=== PATIENT | female | born 1955 | race Caucasian/White ===

== ENCOUNTER 2019-05-12 20:12 | Emergency (ER) | payer OTHER, MEDICARE ==
--- NOTE | 2019-05-12 22:35 | RAD ---
XR Chest Pa Lat STANDARD HISTORY: Cough. Findings: Heart size is within normal limits. Lungs are hyperexpanded compatible with COPD change. No focal infiltrative process. IMPRESSION: COPD.
[2019-05-12 22:40] LABS: Hemoglobin 9.9 g/dL (12.0-16.0); Mean Corpuscular HGB CONC 29.1 g/dL (32.0-36.0); Mean Corpuscular Hemoglobin 19.8 pg (27.0-31.0); Platelet Count 383 thou/uL (130-400); Red Blood Cell (RBC) Count 5.01 mill/uL (4.20-5.40); White Blood Cell (WBC) Count 13.4 thou/uL (4.8-10.8)
[2019-05-12 22:53] LABS: #Lymphocytes 1.1 thou/uL (1.20-3.40); #Monocytes 0.9 thou/uL (0.11-0.59); #Neutrophils 11.3 thou/uL (1.40-6.50); %Basophils 0.4 % (0.0-1.0); %Eosinophils 0.1 % (0.0-10.0); %Lymphocytes 8.5 % (21.0-51.0); Anisocytosis SLIGHT = 6-15 cells (100X) (0-5/hpf); Hypochromia SLIGHT = 6-15 cells (100X) (0-5/hpf); MDiff Complete? YES; Microcytosis SLIGHT = 6-15 cells (100X) (0-5/hpf)
[2019-05-12 22:54] LABS: ALT (SGPT) 7 U/L (8-55); AST (SGOT) 15 U/L (5-34); Albumin 4.4 g/dL (3.4-4.8); Alkaline Phosphatase 110 U/L (40-110); Anion Gap 18 mmol/L (10-20); BUN (Urea Nitrogen) 8 mg/dL (9.8-20.1); Bilirubin, Total 0.6 mg/dL (0.2-1.2); Calc. Creatinine Clearance 0 mL/min (70-130); Calcium 9.3 mg/dL (7.8-10.44); Carbon Dioxide 27 mmol/L (23-31); Chloride 97 mmol/L (98-107); Estimated GFR-MDRD 85; Globulin 2.9 g/dL (2.4-3.5); Glucose 114 mg/dL (80-115); Protein, Total 7.3 g/dL (6.0-8.3); Sodium 139 mmol/L (136-145)
[2019-05-13] MEDS ORDERED: Potassium Chloride 20 MEQ TAB ONE (01:13)
--- NOTE | 2019-05-13 08:50 | CT ---
PRELIMINARY REPORT/[facility]/EMERGENCY AFTER HOURS PROCEDURE: EXAM: CTA Chest with Intravenous Contrast CLINICAL HISTORY: PT REPORTS CONGESTION, COUGH, AND LEG SWELLNG FOR 2 DAYS. PT DENIES PAST MEDICAL HX TECHNIQUE: Axial CTA images of the chest with intravenous contrast. MIP reconstructed images were cre ated and reviewed. CONTRAST: With; ISOVUE 370,100mL COMPARISON: None provided. FINDINGS: PULMONARY ARTERIES There is no intraluminal filling defect suspicious for PE. Enlargement of the central pulmonary arteries consistent with pulmonary arterial hypertension. AORTA No thoracic aortic aneurysm or dissection. LUNGS Extensive centrilobular emphysema. PLEURAL SPACES No pleural effusion. No pneumothorax. HEART AND MEDIASTINUM Coronary artery disease. BONES No focal osseous abnormality or acute fracture. CHEST WALL AND UPPER ABDOMEN Images through the upper abdomen are unremarkable. The chest wall is unremarkable. IMPRESSION: 1. There is no intraluminal filling defect suspicious for PE. 2. Enlargement of the central pulmonary arteries consistent with pulmonary arterial hypertension. 3. Extensive centrilobular emphysema. 4. Coronary artery disease. ELECTRONICALLY SIGNED BY: Francisco Patel MD May 13, 2019 2:07:02 AM CDT This report is intended for review by the ordering physician only, in accordance of law. If you recei ve this report in error, please call [facility] at [phone]. FINAL REPORT CT PULMONARY ANGIOGRAM WITH IV CONTRAST AND 3D POSTPROCESSING: I agree with the preliminary report given by [facility].
--- NOTE | 2019-05-14 11:21 | EKG ---
Test Reason : Blood Pressure : / mmHG Vent. Rate : 120 BPM Atrial Rate : 120 BPM P-R Int : 130 ms QRS Dur : 082 ms QT Int : 342 ms P-R-T Axes : 090 067 080 degrees QTc Int : 483 ms Sinus tachycardia with Premature atrial complexes Biatrial enlargement Nonspecific ST abnormality Abnormal ECG Confirmed by STEFFI JONES, MAXINE Miller ([id number]), acquisitions editor MARII DANG ([id number]) on 05/14/2019 11:21:28 AM Referred By: Confirmed By:MAXINE KAPADIA MD
== END 2019-05-13 04:13 | disposition home or self-care (01) ==
LOC: ERS 20:12
DX: J44.1 Chronic obstructive pulmonary disease with (acute) exacerbation (principal); F17.210 Nicotine dependence, cigarettes, uncomplicated
CPT/HCPCS: 36415; 71046; 71275; 80053; 83880; 84484; 85025; 93005; 94640; 96360; 96361; J7620

== ENCOUNTER 2019-05-26 15:13 | Inpatient (IN) | payer MEDICARE, OTHER ==
[~2019-05-26 15:13] MED LIST: Iopamidol 370 76% 100 ML VIAL ONE
[2019-05-26 16:04] LABS: #Basophils 0.1 thou/uL (0.0-0.2); #Neutrophils 14.7 thou/uL (1.40-6.50); %Basophils 0.4 % (0.0-1.0); %Eosinophils 0.1 % (0.0-10.0); %Lymphocytes 11.2 % (21.0-51.0); %Monocytes 5.6 % (0.0-10.0); %Neutrophils 82.8 % (42.0-75.0); Hemoglobin 7.2 g/dL (12.0-16.0); Mean Corpuscular HGB CONC 28.7 g/dL (32.0-36.0); Mean Corpuscular Hemoglobin 19.6 pg (27.0-31.0); Mean Corpuscular Volume 68.2 fL (78.0-98.0); Mean Platelet Volume 9.2 fL (7.4-10.4); Platelet Count 760 thou/uL (130-400); RBC Distribution Width 19.7 % (11.5-14.5); Red Blood Cell (RBC) Count 3.68 mill/uL (4.20-5.40); White Blood Cell (WBC) Count 17.7 thou/uL (4.8-10.8)
--- NOTE | 2019-05-26 16:05 | RAD ---
CHEST ONE VIEW: 05/26/19 HISTORY: Bilateral ankle swelling for several weeks. COMPARISON: 05/12/2019. FINDINGS: Hyperinflation and chronic lung changes noted bilaterally with minimal increased linear and interstit ial markings. There is some minimal patchy parenchymal change in the right lower lobe new from prior study concerning for minimal right lower lobe pneumonia. IMPRESSION: Hyperinflation and chronic lung changes. New patchy parenchymal changes in the right lower lobe, evid ence for minimal early pneumonia. Continued short term follow-up for complete clearing. POS: RRE
[2019-05-26 16:09] LABS: ALT (SGPT) 9 U/L (8-55); AST (SGOT) 16 U/L (5-34); Albumin 3.6 g/dL (3.4-4.8); Alkaline Phosphatase 88 U/L (40-110); Anion Gap 16 mmol/L (10-20); BUN (Urea Nitrogen) 13 mg/dL (9.8-20.1); Bilirubin, Total 0.4 mg/dL (0.2-1.2); Calc. Creatinine Clearance 0 mL/min (70-130); Calcium 8.5 mg/dL (7.8-10.44); Carbon Dioxide 29 mmol/L (23-31); Chloride 99 mmol/L (98-107); Estimated GFR-MDRD 77; Globulin 3.2 g/dL (2.4-3.5); Glucose 130 mg/dL (80-115); Magnesium 2.2 mg/dL (1.6-2.6); Potassium 3.3 mmol/L (3.5-5.1); Protein, Total 6.8 g/dL (6.0-8.3); Sodium 141 mmol/L (136-145)
[2019-05-26] MEDS ORDERED: cefTRIAXone\\ROCEPHIN 2 GM VIAL ONE (16:17)
[2019-05-26 16:30] LABS: Bilirubin Small (Negative); Blood, Urine Large (Negative); Glucose, Urine (Dipstick) Negative (Negative); Leukocyte Trace (Negative); Nitrite Negative (Negative)
[2019-05-26 16:31] LABS: Clarity Extra Turbid (Clear); Protein, Urine (Dipstick) Unable to Interpret mg/dL (Neg-Trace)
[2019-05-26 16:40] LABS: Bacteria/HPF None Seen HPF (None Seen); RBC/HPF Greater than 50 HPF (0-3); Squamous Epithelial None Seen HPF (0-3)
[2019-05-26] MEDS ORDERED: Azithromycin 500 MG VIAL ONE (16:55)
--- NOTE | 2019-05-26 17:04 | CT ---
CT abdomen and pelvis with IV contrast HISTORY: Hematuria. Urinary retention. FINDINGS: There are emphysematous changes at the lung bases. Prominent calcification throughout the a rterial structures. Diverticula arise from the colon without adjacent inflammation. There are prominent degenerative changes throughout the lumbar spine and hips. Large pocket of fluid within the left upper quadrant may be within a normal loop of duodenum within a duodenal diverticulum. No evidence of complication. Mild distention of the renal collecting system of each kidney and each ureter. Urinary bladder is mar kedly distended, measuring up to 11.2 cm length. Earl catheter and small amount of gas are present within the distended urinary bladder. There is also a large amount of heterogeneous slightly hyperden se material in the dependent portion of the bladder. Along the left side wall of the bladder is a broad-based hyperdense abnormality that is 1.4 cm width at the base by 0.7 cm depth. IMPRESSION : Urinary retention resulting in mild bilateral hydroureteronephrosis. Large amount of blood is present within the urinary bladder. The hyperdense lesion along the lateral side wall of the bladder may represent an enhancing mucosal neoplasm. Atherosclerosis. Diverticulosis. No evidence of diverticulitis.
[2019-05-26] MEDS ORDERED: Potassium Chloride 20 MEQ TAB PO SCH (18:30)
--- NOTE | 2019-05-26 19:39 | HP ---
PRIMARY CARE PHYSICIAN: Moy Simon MD CHIEF COMPLAINT: Unable to urinate. HISTORY OF PRESENT ILLNESS: This is a 64-year-old white female with a past medical history of COPD diagnosed earlier this month when she came in for some lower extremity swelling. She developed lower extremity swelling earlier this month, came into the emergency room. At that time, she had a CT scan done of the chest, which was negative for clots, but did show COPD. She was given some steroids for 5 days and albuterol inhaler and some Tessalon Perles. The patient reports that ever since then, she has a little bit of a cough, but not bad, nonproductive, has not really been bothering her. She has not had any shortness of breath. She has headaches with persistent lower extremity edema. It did start to get a little bit better over the last few days and it hurts when she walks. Then yesterday, the patient noted that she started to have bhupinder blood with her urine and then today she was unable to pee at all, so she came into the emergency room. In the ER, she was found to have urinary retention. A Earl catheter was placed and she was found to have bhupinder blood in her urine. A CT scan of the abdomen did show some mild hydronephrosis bilaterally as well as a very distended bladder. A lot of dependent hemorrhage and clot in the bladder and then a mass on the wall. Dr. Franz was consulted from the emergency room, he did recommend doing bladder irrigation and he is going to see the patient. The patient was also noted to have had a drop in her hemoglobin from 9.9 earlier this month to 7.2 today and she is being transfused 1 unit of packed red blood cells by the emergency room at this time. The patient also had elevated white blood cell count and a chest x-ray showed a possible new development of pneumonia in the lower right lobe and so she had blood and urine cultures drawn and was given Rocephin and azithromycin in the emergency room. The patient currently is feeling well without any specific complaints now that the catheter has been placed in her bladder. REVIEW OF SYSTEMS: CONSTITUTIONAL: No fevers. No chills. EYES: No double vision or blurred vision. ENT: She has some chronic allergic congestion of her sinuses that is at baseline. No sore throat. CARDIOVASCULAR: No chest pain. No palpitations or racing heart. PULMONARY: Minimal cough. Nonproductive. No shortness of breath. No wheezing that she has noted. GASTROINTESTINAL: No abdominal pain. No nausea or vomiting. No diarrhea or constipation. GENITOURINARY: See HPI. MUSCULOSKELETAL: She has noted the edema as above, but no other musculoskeletal complaints. SKIN: No rashes or other lesions she has noted. NEUROLOGIC: No numbness, tingling, or focal weakness. PAST MEDICAL HISTORY: COPD diagnosed recently with a history of childhood asthma. PAST SURGICAL HISTORY: Hysterectomy. SOCIAL HISTORY: The patient smokes half a pack of cigarettes per day for the last 40 years. She has over the last month tried to cut down and now down to about 2 cigarettes per day, was having trouble quitting completely. No alcohol or illicit drug use. She does live by herself. She is a full code. Should she be incapacitated, she states that her daughter would be her medical decision maker. Her daughter's name is Gail Cota. FAMILY HISTORY: The patient's mother did of lung cancer. No other known family medical history. ALLERGIES: NO KNOWN DRUG ALLERGIES. CURRENT MEDICATIONS: 1. Albuterol as needed for coughing, wheezing, and shortness of breath. 2. Ferrous sulfate 325 mg daily. 3. Augmentin 500/125 mg 3 times a day started by her primary care doctor. 4. Spironolactone 25 mg twice a day as started by primary care doctor to try and help edema. PHYSICAL EXAMINATION: VITAL SIGNS: Blood pressure 107/65; pulse initially 112 after fluids, now down into the 80s; respiratory rate initially 26 on presentation, now down about 20 on my exam; temperature 98.3; O2 saturation 99% on 2 L nasal cannula. GENERAL: This is a well-developed, well-nourished white female, who appears pale, but in no acute distress. HEENT: Pupils are equal, round, and reactive to light. Palpebral conjunctivae are pale. Oropharynx clear without lesions, erythema, or exudate. NECK: Supple. No lymphadenopathy. No thyroid nodules or enlargement. HEART: Regular rate and rhythm. No murmurs, rubs, or gallops. LUNGS: Clear to auscultation bilaterally. No wheezes, crackles, or rhonchi. Decent air movement throughout. ABDOMEN: Soft, nontender to palpation. Normoactive bowel sounds. No hepatosplenomegaly or other masses. EXTREMITIES: No clubbing or cyanosis. She does have 1+ pitting edema to bilateral feet, ankles, and lower legs. SKIN: No rashes or lesions noted. NEUROLOGIC: Intact strength and sensation in all extremities. No facial droop. PSYCHIATRIC: Alert and oriented x3. Normal mood and affect. LABORATORY DATA: CBC with a white blood cell count of 17,000 up from 13,000 on the 12th 14 days ago, hemoglobin down to 7.2 from 9.9, hematocrit 25.1, platelet count 760, MCV is very low at 68. Complete metabolic panel is notable for potassium of 3.3, glucose of 130, rest was completely normal. Brain natriuretic peptide was negative. Troponin was negative. Lactic acid was normal. TSH was 5.8, which is actually down from 9.2 at her last ER visit. Urinalysis shows large blood, greater than 50 red blood cells, 4 to 6 white blood cells, no bacteria. IMAGING STUDIES: Chest x-ray, I did review the chest x-ray done in the emergency room along with the radiologist's report. It does show COPD changes and some possible increased lung markings in the right lower lobe, which could be an early pneumonia. CT of the abdomen and pelvis done in the emergency room shows urinary retention resulted in mild bilateral hydronephrosis, a large amount of blood present within the urinary bladder, and a hyperdense lesion along the lateral sidewall of the bladder of 1.4 cm x 0.7 cm, which may represent enhancing mucosal neoplasm. There was also some diverticulosis without diverticulitis and some atherosclerotic disease. ASSESSMENT: 1. Acute urinary retention secondary to bladder hemorrhage, improved with Earl placement. Dr. Franz is going to see the patient down in the ER. We will need to have a bladder irrigation. The patient appears to have lesions that is probably the source of the hemorrhage on the bladder wall. We will likely need to have this taken care of by Dr. Franz. 2. Vpcxs-ua-ozcaddl iron deficiency anemia with acute hemorrhage. The patient is getting a unit of blood in the emergency room. We will then trend her hemoglobin and hematocrit. We can stop her bleeding, she may able to have this treated with just iron supplementation. 3. Bilateral lower extremity edema without any evidence of congestive heart failure. We will get a bilateral lower extremity Doppler to see if she has clots as the source of her edema. She does not appear to have any congestive failure or renal failure at this time to explain her albumin is normal. No evidence of being secondary to liver disease. 4. Chronic obstructive pulmonary disease. The patient does not appear to be in acute exacerbation right now. However, she does have a questionable pneumonia on the chest x-ray and has an elevated white blood cell count even after over a week off steroids. We will continue antibiotics as in an attempt to maintain our azithromycin stores. I will switch her to Levaquin. This should cover urinary and pulmonary pathologies and we will give DuoNeb nebs as needed. She does not need steroids at this point. 5. Sepsis, not severe. The patient did have elevated white blood cell count along with tachycardia on admission. This qualifies her for sepsis criteria. Uncertain if the source is urine or the lungs at this time. We are getting cultures are pending. Antibiotics are being given. 6. Gastrointestinal prophylaxis. The patient is on Pepcid twice a day. 7. Deep venous thrombosis prophylaxis. At this time, we will hold on any Lovenox due to her bleeding. We will hold on SCDs until we have cleared her legs of possibly of any clots. 8. Code status: The patient is a full code. Should she be incapacitated, her daughter would be her medical decision maker. 9. Tobacco abuse. I did encourage the patient and her efforts to quit smoking. Job ID: [id number]
[2019-05-26] MEDS ORDERED: Acetaminophen 325 MG TAB PO PRN (20:10)
[2019-05-26] MEDS ORDERED: Ondansetron PF 4 MG/2 ML Vial IVP PRN (20:10)
[2019-05-26] MEDS ORDERED: Guaifenesin DM 100-10/5 ML UDCUP PO PRN (20:10)
[2019-05-26] MEDS ORDERED: Senokot S 8.6-50 MG TAB PO PRN (20:10)
[2019-05-26] MEDS ORDERED: Acetaminophen 650 MG Suppository PR PRN (20:10)
[2019-05-26] MEDS ORDERED: Ondansetron ODT 4 MG TAB PO PRN (20:10)
--- NOTE | 2019-05-26 20:12 | CON ---
DATE OF CONSULTATION: 05/26/2019 CHIEF COMPLAINT: Difficulty voiding, gross hematuria. HISTORY: Ms. Cuellar is a 64-year-old female with a long history of smoking, who was recently seen in the emergency room for lower extremity edema that was within the last month and prior to that, she was on no medications. Medications that she is currently on have all been started since then. She presents now for some persistent lower extremity edema, but more acutely difficulty voiding and gross hematuria. She states that the gross hematuria began approximately 2 days ago. She underwent a CT scan in the emergency room, was noted to have a large distended bladder with a large mass, clot versus tumor. Laboratories included a hemoglobin of 7. For this reason, urologic consultation was requested. PAST MEDICAL HISTORY: COPD. PAST SURGICAL HISTORY: Hysterectomy. SOCIAL HISTORY: She has a daughter who lives in [place], and a sister that lives in [facility] and a brother. Her . She continues to smoke. She denies alcohol use. MEDICATIONS: Current medications (all recently started) include: 1. Prednisone 20 mg three tablets daily. 2. Tessalon Perles 100 mg one every 8 hours p.r.n. 3. Iron 325 mg. 4. Augmentin 500/125. 5. Spironolactone 25 mg b.i.d. 6. Albuterol sulfate inhaler 90 mcg 1-2 puffs every 4-6 hours as needed for wheezing or difficulty breathing. REVIEW OF SYSTEMS: RESPIRATORY: No new changes in her breathing. CARDIOVASCULAR: Denies chest pain or palpitations., GASTROINTESTINAL: Denies chronic constipation or diarrhea. GENITOURINARY: Please see history of present illness. She has no prior urologic history. Denies any prior gross hematuria, kidney stones, tumors, or flank pain. DERMATOLOGIC: No recent rashes or lesions. 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 PHYSICAL EXAMINATION: VITAL SIGNS: On presentation, blood pressure 155/63, pulse 126, respiratory rate 20. Vital signs most recent; blood pressure 105/65, pulse 112, respiratory rate 26, O2 saturation 99% on 2 L of oxygen. GENERAL: She is awake, alert, and in no distress. HEENT: Normocephalic, atraumatic. NECK: Supple without masses. CHEST: Mild wheezing. Breath sounds are clear. CARDIOVASCULAR: No murmurs auscultated. ABDOMEN: Bladder distention. No tenderness. No peritoneal signs. EXTREMITIES: Lower extremities, 2+ pedal edema. LABORATORY DATA: Hemoglobin 7.2, hematocrit 25.1, white blood cell count 17.7, platelet count 760. Chemistry; sodium 141, potassium 3.3, chloride 99, CO2 29, BUN 13, creatinine 0.75, glucose 130. Urine, grossly bloody. No bacteria seen. PROCEDURE: Hand irrigation with an indwelling 16-Senegalese catheter was performed, but this catheter would not irrigate, it was removed and a 20-Senegalese catheter was placed. Hand irrigation was performed until all clots were irrigated from the bladder. Once all clear clots were irrigated from the bladder, a 3-way Earl catheter was placed. Continuous bladder irrigation was initiated in the emergency room and she was transferred to up stairs with 3-way bladder irrigation. CT, mild bilateral hydronephrosis, distended bladder, large amount of clot and/or tumor in the bladder. IMPRESSION: Ms. Cuellar is a 64-year-old female who presented to the emergency room with acute onset of gross hematuria and a hemoglobin of 7. She has a long smoking history, large amount of clot was evacuated from the bladder and presumably all the clot is out now. She has findings suggesting of bladder cancer, I have explained this to her. She will be admitted and continuous bladder irrigation will be continued overnight. She will need cystoscopy, transurethral resection of bladder tumor. The procedure, potential limitations, and complication have been discussed with her. PLAN: 1. Continuous bladder irrigation overnight. 2. TURBT, possible stent placement. Job ID: [id number]
[2019-05-26 20:38] VITALS: BMI 15.1
[2019-05-26] MEDS: Famotidine 20 MG TAB PO SCH (21:15)
--- NOTE | 2019-05-26 22:08 | ULT ---
ULTRASOUND DOPPLER DUPLEX VENOUS BILATERAL LOWER EXTREMITIES: DATE: 05/26/2019 HISTORY: Bilateral lower extremity pain and edema in 64-year-old female TECHNIQUE: Grayscale, color-flow, and spectral analysis, of major veins of bilateral lower extremities. FINDINGS: There is demonstration of blood flow with normal compressibility, of the bilateral common femoral, pr ofunda femoral, greater saphenous, femoral, popliteal, and posterior tibial, veins. There is edema in the superficial soft tissue of the calves bilaterally. IMPRESSION: 1. No deep venous thrombosis of bilateral lower extremities. 2. Bilateral leg soft tissue edema.
[2019-05-27 05:51] LABS: #Lymphocytes 0.9 thou/uL (1.20-3.40); #Monocytes 0.8 thou/uL (0.11-0.59); #Neutrophils 9.9 thou/uL (1.40-6.50); %Basophils 0.1 % (0.0-1.0); %Eosinophils 0.1 % (0.0-10.0); %Lymphocytes 7.4 % (21.0-51.0); %Neutrophils 85.4 % (42.0-75.0); Mean Corpuscular HGB CONC 30.9 g/dL (32.0-36.0); Mean Corpuscular Hemoglobin 22.5 pg (27.0-31.0); Mean Platelet Volume 9.2 fL (7.4-10.4); Platelet Count 452 thou/uL (130-400); RBC Distribution Width 20.3 % (11.5-14.5); Red Blood Cell (RBC) Count 3.54 mill/uL (4.20-5.40); White Blood Cell (WBC) Count 11.6 thou/uL (4.8-10.8)
[2019-05-27 06:03] LABS: Anion Gap 14 mmol/L (10-20); BUN (Urea Nitrogen) 7 mg/dL (9.8-20.1); Calc. Creatinine Clearance 54 mL/min (70-130); Calcium 7.4 mg/dL (7.8-10.44); Carbon Dioxide 22 mmol/L (23-31); Chloride 109 mmol/L (98-107); Estimated GFR-MDRD Greater than 90; Glucose 88 mg/dL (80-115); Potassium 3.7 mmol/L (3.5-5.1); Sodium 141 mmol/L (136-145)
[2019-05-27] MEDS: Famotidine 20 MG TAB PO SCH ×2 (08:38→20:46)
[2019-05-27] MEDS ORDERED: Ondansetron PF 4 MG/2 ML Vial ONE (09:39)
[2019-05-27] MEDS ORDERED: Dexamethasone 20 MG/5 ML VIAL ONE (09:39)
[2019-05-27] MEDS ORDERED: Lidocaine 1% PF 5 ML VIAL ONE (09:39)
[2019-05-27] MEDS ORDERED: PROPOFOL 200 MG/20 ML VIAL ONE (09:39)
[2019-05-27] MEDS ORDERED: Fentanyl 100 MCG/2 ML VIAL ONE ×2 (12:22)
[2019-05-27] MEDS ORDERED: Midazolam HCl 2 mg/2 ml Vial ONE (12:29)
[2019-05-27] MEDS ORDERED: Ketamine 50 MG/ML (10ML VIAL) ONE (12:39)
--- NOTE | 2019-05-27 14:09 | OP ---
DATE OF PROCEDURE: 05/27/2019 PREOPERATIVE DIAGNOSIS: Bladder tumor, clot retention. POSTOPERATIVE DIAGNOSIS: Bladder tumor, clot retention. PROCEDURE PERFORMED: Transurethral resection of a bladder tumour, 2 cm. ANESTHESIA: General. INDICATIONS: Ms. Cuellar is a 64-year-old female who presented to the hospital on 05/26/2019, with a large volume of clot and retention. She was anemic and has received 2 units of blood since admission. A CT scan demonstrated no evidence of metastatic disease. In the emergency room, she was treated by hand irrigation of clot from the bladder. She was brought to the operating room at this time for cystoscopic evaluation, TURBT, possible left ureteral stent. DESCRIPTION OF PROCEDURE: The patient was given general anesthesia. IV antibiotics. She was sterilely prepped and draped in a lithotomy position. Cystoscope was passed into the bladder. The bladder was examined in its entirety. She had a 2 cm bladder tumor superior and lateral to the left ureteral orifice. The resectoscope was utilized to resect the tumor in its entirety. The specimen was sent as two specimen superficial and deep. At the termination of procedure, there was no residual tumor seen. Both ureteral orifices were intact. There was no active bleeding. The resectoscope was removed, and a Earl catheter was placed. The catheter was irrigated easily and clearly. The patient was transferred from the operating room to the recovery room in stable condition. COMPLICATION: None. ESTIMATED BLOOD LOSS: Less than 5 mL. SPECIMENS: Bladder tumor, superficial and deep. Job ID: [id number]
--- NOTE | 2019-05-27 16:15 | PDOC.HOSPP ---
- Subjective Encounter Date: 05/27/19 Encounter Time: 03:30 Subjective: pt resting and she just got her lunch. explained the paln to her about dc tomorrow and she needs to keep the nava until thursday and then her dtr can help to remove the nava. Has to follow in the urology clinic wDavid Greco. - Objective Vital Signs & Weight: Vital Signs (12 hours) Temp Pulse Resp BP Pulse Ox 05/27/19 14:42 97 20 132/71 93 L 05/27/19 08:00 97.6 F 107 H 18 132/76 96 05/27/19 04:28 99.1 F 105 H 18 119/72 92 L Weight Admit Weight 83 lb Weight 83 lb I&O: 05/26/19 05/27/19 05/28/19 06:59 06:59 06:59 Intake Total 400 Output Total 1200 Balance -800 Result Diagrams: 05/27/19 05:15 05/27/19 05:15 Hospitalist ROS - Medication Medications: Active Medications Generic Name Dose Route Start Last Admin Trade Name Freq PRN Reason Stop Dose Admin Famotidine 20 mg 05/26/19 21:00 05/27/19 08:38 Pepcid PO Not Given BID ANNE Levofloxacin 750 mg/ Device 150 mls @ 100 mls/hr 05/26/19 21:00 05/26/19 21: 15 IVPB 150 mls 2100 ANNE Administration - Exam General Appearance: NAD, awake alert Eye: PERRL ENT: normocephalic atraumatic Neck: supple Heart: RRR Respiratory: CTAB, normal chest expansion Gastrointestinal: soft, normal bowel sounds Hosp A/P - Plan Hematuria Bladder cancer Acute blood loss anemia Anemia d/t cancer -s/p transurethral resection of tumor 2cm -s/p transfusion -montor o/n -repeat cbc ordered check hgb if stable > 8, then dc with either bactrim or macrobid or ceftin for 3 days - while pt has nava, urology recommended that she is on abx until nava removed. she is getting LQ IV here. if hgb stable, can dc tomorrow and she needs to keep the nava until thursday and then her dtr can help to remove the nava. Has to follow in the urology clinic wDavid Greco in 1 week
[2019-05-28 06:18] LABS: #Lymphocytes 1.5 thou/uL (1.20-3.40); #Monocytes 1.2 thou/uL (0.11-0.59); #Neutrophils 12.4 thou/uL (1.40-6.50); %Basophils 0.1 % (0.0-1.0); %Eosinophils 0.1 % (0.0-10.0); %Lymphocytes 9.9 % (21.0-51.0); %Monocytes 7.7 % (0.0-10.0); %Neutrophils 82.3 % (42.0-75.0); Hemoglobin 10.5 g/dL (12.0-16.0); Mean Corpuscular HGB CONC 31.3 g/dL (32.0-36.0); Mean Corpuscular Hemoglobin 24.1 pg (27.0-31.0); Mean Platelet Volume 9.4 fL (7.4-10.4); Platelet Count 439 thou/uL (130-400); RBC Distribution Width 21.7 % (11.5-14.5); Red Blood Cell (RBC) Count 4.36 mill/uL (4.20-5.40); White Blood Cell (WBC) Count 15.1 thou/uL (4.8-10.8)
[2019-05-28] MEDS: Famotidine 20 MG TAB PO SCH (08:43)
[2019-05-28 12:49] VITALS: BP 103/65; TEMP 98.2
--- NOTE | 2019-05-28 14:18 | DIS ---
DATE OF ADMISSION: 05/27/2019 DATE OF DISCHARGE: 05/28/2019 HOSPITAL COURSE: Ms. Cuellar is a 64-year-old female with a medical history of COPD who presented with urinary blood clots and lower extremity edema. She was diagnosed with bladder cancer. 1. Bladder cancer. a. The patient underwent transurethral bladder cancer removal by Dr. Franz. b. Nava catheter was placed. c. Prior to discharge, the patient demanded to be discharged and said that the daughter would not be able to help her take out the Nava because she was not in town. The patient was discharged with a Nava. Dr. Meyer came by and saw the patient prior to discharge and explained how to take the nava out the day after discharge. She will also be followed up by her PCP d. The patient was also made appointment with Dr. Franz in a week. e. The patient was discharged on Bactrim Double Strength until the Nava is removed, and was educated regarding the increased chance of urinary tract infection with every day in which a Nava catheter is in place. 2. Microcytic anemia. a. Likely due to bladder cancer and chronic bleeding. b. The patient was transfused with 2 PRBCs and responded well. c. Hemoglobin on the day of discharge was stable and the patient did not show any signs of anemia on the day of discharge. 3. Subclinical hypothyroidism. a. The patient had an elevated TSH, but normal free T4. b. The patient's PCP should follow up with another TSH in 6 weeks because subclinical hypothyroidism resolves in up to 30% of the patients. On the day of discharge, the patient was hemodynamically stable and had no complaints. PHYSICAL EXAMINATION: She was hemodynamically stable. GENERAL: No apparent distress. Alert and oriented x3. CARDIAC: Regular rate and rhythm. No murmurs or gallops. LUNGS: Clear to auscultation bilaterally. No wheezing, rales, or rhonchi. No tachypnea. GI: Soft, nontender. Normal bowel sounds. EXTREMITIES: Strength 5/5 throughout in upper and lower extremities. NEUROLOGIC: Cranial nerves intact 2 through 12. No facial asymmetry or focal weakness. PSYCHIATRIC: Proper mood and affect. Alert and oriented x3. Job ID: [id number] [facility]
--- NOTE | 2019-05-31 12:30 | PQF ---
EVIN SINHA KIKA [id number] [id number]- 4430 [id number] CLINICAL DOCUMENTATION CLARIFICATION FORM: POST DISCHARGE Addendum to original discharge summary date: ____ Late entry note date: __ DATE:05/31/2019 ATTN:KIKA ZAYAS Please exercise your independent, professional judgment in responding to the clarification form. Clinical indicators are provided on the bottom of this form for your review Please check appropriate box(s) to clarify if the following diagnosis has been ruled in or ruled out: Sepsis [ ] Ruled in diagnosis [ ] Continue to treat [ ] Resolved [ x ] Ruled out diagnosis [ ] Cannot rule out diagnosis [ ] Other diagnosis [ ] Unable to determine In addition, please specify: Present on Admission (POA): [ ] Yes [x ] No [ ] Unable to determine For continuity of documentation, please document condition throughout progress notes and discharge summary. Thank You. CLINICAL INDICATORS - SIGNS / SYMPTOMS / LABS Sepsis, not severe. The patient did have elevated white blood cell count along wth tachycardia on admission. This qualifies her for sepsis criteria. Ucertain if the source is urine or lungs at this time. We are getting cultures are pending- documented in H&P on 05/25 by Amadeo Matute MD. Pneumonia-Documented in ED on 05/25 by Roxanne Harris UTI-Documented in ED on 05/25 by Roxanne Harris WBC-17.7-Documented in laboratory RISK FACTORS Pneumonia-Documented in ED on 05/25 by Roxanne Harris UTI-Documented in ED on 05/25 by Roxanne Harris TREATMENTS Antibiotics are being given- documented in H&P on 05/25 by Amadeo Matute MD. Rocephin and azithromycin -Documented in ED on 05/[address] [employer] Reports Winform Viewer (This form is maintained as a part of the permanent medical record) 2015 [employer]. All Rights Reserved [email or web address] [phone] MTDD
--- NOTE | 2019-06-02 01:17 | PQF ---
EVIN SINHAVARGHESEI [id number] T4-B- 4430 [id number] CLINICAL DOCUMENTATION CLARIFICATION FORM: POST DISCHARGE Addendum to original discharge summary date: ____ Late entry note date: __ DATE:06/02/2019 ATTN: KIKA ZAYAS Please exercise your independent, professional judgment in responding to the clarification form. Clinical indicators are provided on the bottom of this form for your review Please check appropriate box(s) to clarify if the following diagnosis has been ruled in or ruled out:Pneumonia [ ] Ruled in diagnosis [ ] Continue to treat [ ] Resolved [ x ] Ruled out diagnosis [ ] Cannot rule out diagnosis [ ] Other diagnosis [ ] Unable to determine In addition, please specify: Present on Admission (POA): [ ] Yes [ ] No [ ] Unable to determine For continuity of documentation, please document condition throughout progress notes and discharge summary. Thank You. CLINICAL INDICATORS - SIGNS / SYMPTOMS / LABS Pneumonia- ED provider note 05/26/19- Roxanne Fairchild MD pg4 respiratory rate- ,- 05/25 -ED provider note 05/26/19- Roxanne Fairchild MD pg2 Wheezing present- ED provider note 05/26/19- Roxanne Fairchild MD pg3 Chest x-rays shows infiltrate which is new from previous-- ED provider note 05/26/19- Roxanne Fairchild MD pg3 O2 saturation 99%- on 2l nasal cannula- H and P 05/26/19- Dr. Giovani Renteria MD pg2 Questionable pneumonia- H and P 05/26/19- Dr. Giovani Renteria MD pg4 Non productive cough - H and P 05/26/19- Dr. Giovani Renteria MD pg1 New patchy parenchymal changes in the right lower lobe , evidence for minimal early pneumonia- Chest X-ray 05/26/19- Gerald Pizarro MD WBC- 17.7- 05/25 , 11.6- 05/26 , 15.1- 05/27 -as per lab RISK FACTORS Advanced age 64 years-- Discharge summary- 05/28/19- Dr. Tom Sam MD pg1 HX of COPD-- Discharge summary- 05/28/19- Dr. Tom Sam MD-pg1 Tobacco user Smokes cigarettes ED provider note 05/26/19- Roxanne Fairchild MD pg2 chronic allergic congestion - H and P 05/26/19- Dr. Giovani Renteria MD pg1 TREATMENTS Rocephin IV- 05/25 as per APR Zithromax IV- 05/25-- as per APR Levofloxacin IV- 05/25 -as per APR Chest X-ray 05/26/19- Gerald Sweet MD [employer] Crystal Reports Winform Viewer (This form is maintained as a part of the permanent medical record) 2014 [email or web address]. All Rights Reserved Arelis [email or web address] [phone] MTDD
--- NOTE | 2019-06-03 13:52 | EKG ---
Test Reason : Blood Pressure : / mmHG Vent. Rate : 117 BPM Atrial Rate : 117 BPM P-R Int : 116 ms QRS Dur : 084 ms QT Int : 368 ms P-R-T Axes : 085 -68 075 degrees QTc Int : 513 ms Sinus tachycardia with Premature supraventricular complexes Left axis deviation Abnormal ECG Confirmed by GABINO MALDONADO M.D. ([id number]), editor at large CLAUDINE ENAMORADO ([id number]) on 06/03/2019 1:52:21 PM Referred By: Confirmed By:GABINO MALDONADO M.D.
== END 2019-05-28 15:38 | disposition home or self-care (01) | DRG 669 ==
LOC: ERS 15:13 → T4-B 19:56 → OBSVTOIN 05-27 16:10
PROVIDERS: ADMIT Emergency Medicine; ATTEND Emergency Medicine
PROC: 0TBB8ZZ Excision of Bladder, Via Natural or Artificial Opening Endoscopic (ICD-10-PCS; principal; 2019-05-27)
DX: C67.9 Malignant neoplasm of bladder, unspecified (principal); D62 Acute posthemorrhagic anemia; N39.0 Urinary tract infection, site not specified; N13.30 Unspecified hydronephrosis; R60.9 Edema, unspecified; J44.9 Chronic obstructive pulmonary disease, unspecified; Z71.6 Tobacco abuse counseling; Z90.49 Acquired absence of other specified parts of digestive tract; F17.210 Nicotine dependence, cigarettes, uncomplicated; R31.0 Gross hematuria; D63.0 Anemia in neoplastic disease; E03.9 Hypothyroidism, unspecified
CPT/HCPCS: 36415; 36430; 51703; 71045; 74177; 76000; 80048; 80053; 81003; 81015; 83605; 83735; 83880; 84439; 84443; 84484; 85025; 86850; 86900; 86901; 87040; 87086; 88307; 88341; 88342; 93005; 93970; 94760; 96365; 96367; 99292; C1769; J0456; J0696; J1100; J1956; J2001; J2250; J2405; J2704; J3010; P9016; Q9967

== ENCOUNTER 2020-11-13 09:37 | Outpatient (CLI) | payer MEDICARE, OTHER | END 2020-11-13 09:38 | disposition home or self-care (01) | LOC: BICRAD 09:37 | PROVIDERS: ATTEND Internal Medicine Critical Care Medicine | DX: R06.00 Dyspnea, unspecified (principal); J43.9 Emphysema, unspecified; R91.8 Other nonspecific abnormal finding of lung field | CPT/HCPCS: 71046 ==

== ENCOUNTER 2021-11-13 09:39 | Outpatient (CLI) | payer MEDICARE, OTHER | END 2021-11-13 09:40 | disposition home or self-care (01) | LOC: BICRAD 09:39 | PROVIDERS: ATTEND Internal Medicine Critical Care Medicine | DX: R06.09 Other forms of dyspnea (principal); J44.9 Chronic obstructive pulmonary disease, unspecified | CPT/HCPCS: 71046 ==

== ENCOUNTER 2022-03-24 10:35 | Inpatient (IN) | payer MEDICARE, OTHER ==
[2022-03-24 11:20] LABS: #Eosinphils 0.1 thou/uL (0.0-0.7); #Lymphocytes 0.5 thou/uL (1.20-3.40); #Monocytes 0.5 thou/uL (0.11-0.59); #Neutrophils 13.5 thou/uL (1.40-6.50); %Basophils 0.2 % (0.0-1.0); %Eosinophils 0.4 % (0.0-10.0); %Lymphocytes 3.5 % (21.0-51.0); %Monocytes 3.5 % (0.0-10.0); %Neutrophils 92.5 % (42.0-75.0); Hemoglobin 13.8 g/dL (12.0-16.0); Mean Corpuscular Hemoglobin 33.6 pg (27.0-31.0); Platelet Count 357 10x3/uL (130-400); RBC Distribution Width 12.4 % (11.5-14.5); White Blood Cell (WBC) Count 14.6 10x3/uL (4.8-10.8)
[2022-03-24] MEDS ORDERED: Iopamidol-370 76% 500 ML 1 ML ONE (11:21)
[2022-03-24] MEDS ORDERED: methylPREDNISolone Sod Succ/PF 125 MG/2 ML VIAL ONE (11:24)
[2022-03-24] MEDS ORDERED: Ondansetron PF 4 MG/2 ML Vial ONE (11:24)
[2022-03-24] MEDS ORDERED: Magnesium 2 GM/50 ML BAG (IN WATER) ONE (11:24)
[2022-03-24 11:46] LABS: ALT (SGPT) 15 U/L (8-55); AST (SGOT) 18 U/L (5-34); Albumin 3.3 g/dL (3.4-4.8); Alkaline Phosphatase 83 U/L (40-110); Anion Gap 16 mmol/L (10-20); BUN (Urea Nitrogen) 20 mg/dL (9.8-20.1); Bilirubin, Total 0.8 mg/dL (0.2-1.2); Calc. Creatinine Clearance 0 mL/min (70-130); Calcium 9.1 mg/dL (7.8-10.44); Carbon Dioxide 29 mmol/L (23-31); Chloride 103 mmol/L (98-107); Estimated GFR 62; Globulin 3.3 g/dL (2.4-3.5); Glucose 220 mg/dL (80-115); Lipase 16 U/L (8-78); Magnesium 1.9 mg/dL (1.6-2.6); Potassium 3.9 mmol/L (3.5-5.1); Protein, Total 6.6 g/dL (5.8-8.1); Sodium 144 mmol/L (136-145)
[2022-03-24 11:56] LABS: MDiff Complete? YES; Macrocytosis SLIGHT = 6-15 cells (100X) (0-5/hpf); Platelet Morphology Comment Appears Adequate; Polychromasia SLIGHT = 2-3 cells (100X) (0-2/hpf); Tear Drops SLIGHT = 2-5 cells (100X) (0-1/hpf)
[2022-03-24] MEDS ORDERED: Ipratropium/Albuterol 3 ML NEB ONE (12:20)
[2022-03-24 12:33] LABS: SARS-CoV-2 NAA Rapid Test Not Detected (NotDetected)
[2022-03-24 12:37] LABS: Bacteria/HPF 4+ HPF (None Seen); Bilirubin Negative (Negative); Blood, Urine Negative (Negative); Clarity Turbid (Clear); Glucose, Urine (Dipstick) Normal (Negative); Ketone, Urine Negative (Negative); Leukocyte 75 Leu/uL (Negative); Nitrite Negative (Negative); Protein, Urine (Dipstick) 70 mg/dL (Neg-Trace); RBC/HPF 0-3 HPF (0-3); Specific Gravity, Urine 1.031 (1.002-1.036); Urobilinogen 3 mg/dL (Less than 2); pH, Urine 5.5 (5.0-9.0)
[2022-03-24] MEDS ORDERED: cefTRIAXone\\ROCEPHIN 1 GM VIAL ONE (13:33)
[2022-03-24 13:50] LABS: CKMB 2.8 ng/mL (0-6.6)
[2022-03-24 14:06] LABS: Lactic Acid 1.7 mmol/L (0.5-2.2)
[2022-03-24] MEDS ORDERED: HYDROcodone/Acetaminophen 5/325 mg Tablet PO PRN (14:09)
[2022-03-24] MEDS ORDERED: Ondansetron PF 4 MG/2 ML Vial IVP PRN (14:09)
[2022-03-24] MEDS ORDERED: Acetaminophen 325 MG TAB PO PRN (14:09)
[2022-03-24 14:20] LABS: Actual Bicarbonate (HCO3a) 26.5 mEq/L (22-28); Analyzer IN Cardio ER; Base Excess (BEa) 0.5 mEq/L (-2.0 to +3.0); CO2 Tension 47.7 mmHg (35.0-45.0); Calcium, Ionized (arterial) 1.11 mmol/L (1.12-1.30); Carboxyhemoglobin (COHb) 0.2 gm% (0.0-3.0); Hemoglobin (Hb) 13.4 g/dL (12.0-16.0); Potassium - ABG Lab 3.82 mmol/L (3.70-5.30); pH, Arterial 7.36 (7.35-7.45)
[2022-03-24 14:31] LABS: O2 Tension (PaO2), arterial 51.5 mmHg (> 80.0)
[2022-03-24 14:32] LABS: ALV-art Gradient 145.555 mmHg (0-20); Puncture Site LRA
[2022-03-24] MEDS ORDERED: Dextrose 50% Abboject 50 ML SYRINGE SLOW IVP PRN (14:49)
[2022-03-24] MEDS ORDERED: Dextrose 5% in Water 1,000 ML IV PRN (14:49)
[2022-03-24] MEDS ORDERED: HumaLOG 300 UNITS/3 ML VIAL SC PRN (14:49)
[2022-03-24] MEDS ORDERED: Furosemide 20 MG/2 ML VIAL SLOW IVP SCH (14:52)
[2022-03-24] MEDS ORDERED: Azithromycin 500 MG VIAL ONE (15:50)
[2022-03-24] MEDS ORDERED: Furosemide 20 MG/2 ML VIAL ONE (15:50)
[2022-03-24] MEDS: Azithromycin 500 MG in Sodium Chloride 0.9% 250 ML 250 ML IVPB SCH (16:03)
[2022-03-24 16:24] LABS: Troponin I 0.043 ng/mL (< 0.028)
[2022-03-24] MEDS: Arformoterol 15 MCG/2 ML NEB NEB SCH (19:30)
[2022-03-24] MEDS: Atorvastatin Calcium 10 MG TAB PO SCH (20:27)
[2022-03-24] MEDS: methylPREDNISolone Sod Succ 40 MG VIAL IVP SCH (20:28)
[2022-03-24 20:38] LABS: Troponin I 0.044 ng/mL (< 0.028)
[2022-03-24] MEDS ORDERED: methylPREDNISolone Sod Succ 40 MG VIAL IVP SCH (22:00)
[2022-03-25] MEDS: Furosemide 20 MG/2 ML VIAL SLOW IVP SCH ×2 (05:13→15:44)
[2022-03-25] MEDS: Levothyroxine Sodium 75 MCG TAB PO SCH (05:16)
[2022-03-25] MEDS: Arformoterol 15 MCG/2 ML NEB NEB SCH ×2 (06:19→18:37)
[2022-03-25] MEDS: Ipratropium/Albuterol 3 ML NEB NEB PRN (06:23)
[2022-03-25 07:46] LABS: #Lymphocytes 0.5 thou/uL (1.20-3.40); #Monocytes 0.5 thou/uL (0.11-0.59); #Neutrophils 10.3 thou/uL (1.40-6.50); %Basophils 0.1 % (0.0-1.0); %Eosinophils 0.3 % (0.0-10.0); %Lymphocytes 4.8 % (21.0-51.0); %Monocytes 4.7 % (0.0-10.0); %Neutrophils 90.1 % (42.0-75.0); Hemoglobin 12.8 g/dL (12.0-16.0); Mean Corpuscular HGB CONC 33.4 g/dL (32.0-36.0); Mean Corpuscular Hemoglobin 35.3 pg (27.0-31.0); Mean Platelet Volume 7.3 fL (7.4-10.4); Platelet Count 257 10x3/uL (130-400); Red Blood Cell (RBC) Count 3.62 mill/uL (4.20-5.40); White Blood Cell (WBC) Count 11.4 10x3/uL (4.8-10.8)
[2022-03-25 07:54] LABS: Hemoglobin A1c 6.1 % (4.0-6.0)
[2022-03-25 08:06] LABS: Anion Gap 15 mmol/L (10-20); BUN (Urea Nitrogen) 18 mg/dL (9.8-20.1); Calc. Creatinine Clearance 33 mL/min (70-130); Calcium 8.8 mg/dL (7.8-10.44); Carbon Dioxide 30 mmol/L (23-31); Chloride 104 mmol/L (98-107); Estimated GFR 80; Glucose 149 mg/dL (80-115); Magnesium 2.2 mg/dL (1.6-2.6); Potassium 4.1 mmol/L (3.5-5.1); Sodium 145 mmol/L (136-145)
[2022-03-25] MEDS: Calcium Carbonate 500 MG ChewTAB PO SCH (08:48)
[2022-03-25] MEDS: Aspirin 81 mg Enteric Coated Tablet PO SCH (08:48)
[2022-03-25] MEDS: Midodrine HCl 5 MG TAB PO SCH ×3 (08:48→21:17)
[2022-03-25] MEDS: methylPREDNISolone Sod Succ 40 MG VIAL IVP SCH ×2 (08:48→21:17)
[2022-03-25] MEDS ORDERED: Aspirin Chewable 81 MG TAB PO SCH (09:00)
[2022-03-25] MEDS: cefTRIAXone\\ROCEPHIN 1 GM in Sodium Chloride 0.9% 100 ML IVPB SCH (15:44)
[2022-03-25 16:40] LABS: Legionella Urinary Ag Negative (Negative); Strep pneumo Urine Ag NEGATIVE (NEGATIVE)
[2022-03-25] MEDS: Azithromycin 500 MG in Sodium Chloride 0.9% 250 ML 250 ML IVPB SCH (18:28)
[2022-03-25] MEDS: Atorvastatin Calcium 10 MG TAB PO SCH (21:17)
[2022-03-25] MEDS: Ivabradine 5 MG TAB PO SCH (21:17)
[2022-03-26 04:25] LABS: Anion Gap 13 mmol/L (10-20); BUN (Urea Nitrogen) 23 mg/dL (9.8-20.1); Calc. Creatinine Clearance 32 mL/min (70-130); Calcium 8.6 mg/dL (7.8-10.44); Carbon Dioxide 32 mmol/L (23-31); Chloride 101 mmol/L (98-107); Estimated GFR 78; Glucose 168 mg/dL (80-115); Potassium 4.2 mmol/L (3.5-5.1); Sodium 142 mmol/L (136-145)
[2022-03-26] MEDS: Arformoterol 15 MCG/2 ML NEB NEB SCH ×2 (06:40→19:26)
[2022-03-26] MEDS: Ipratropium/Albuterol 3 ML NEB NEB PRN (06:40)
[2022-03-26] MEDS: Furosemide 20 MG/2 ML VIAL SLOW IVP SCH ×2 (06:50→14:20)
[2022-03-26] MEDS: Levothyroxine Sodium 75 MCG TAB PO SCH (07:00)
[2022-03-26] MEDS: methylPREDNISolone Sod Succ 40 MG VIAL IVP SCH ×2 (09:01→21:55)
[2022-03-26] MEDS: Ivabradine 5 MG TAB PO SCH ×2 (09:01→21:56)
[2022-03-26] MEDS: Calcium Carbonate 500 MG ChewTAB PO SCH ×2 (09:02→09:12)
[2022-03-26] MEDS: Aspirin 81 mg Enteric Coated Tablet PO SCH (09:02)
[2022-03-26] MEDS: Potassium Chloride 10 MEQ TAB PO SCH (09:02)
[2022-03-26] MEDS: Midodrine HCl 5 MG TAB PO SCH ×3 (09:02→21:56)
[2022-03-26] MEDS: Azithromycin 500 MG in Sodium Chloride 0.9% 250 ML 250 ML IVPB SCH (14:20)
[2022-03-26] MEDS: cefTRIAXone\\ROCEPHIN 1 GM in Sodium Chloride 0.9% 100 ML IVPB SCH (14:20)
[2022-03-26] MEDS: Atorvastatin Calcium 10 MG TAB PO SCH (21:56)
[2022-03-27 04:12] LABS: Anion Gap 15 mmol/L (10-20); BUN (Urea Nitrogen) 24 mg/dL (9.8-20.1); Calc. Creatinine Clearance 32 mL/min (70-130); Calcium 8.7 mg/dL (7.8-10.44); Carbon Dioxide 31 mmol/L (23-31); Chloride 98 mmol/L (98-107); Estimated GFR 77; Glucose 196 mg/dL (80-115); Potassium 4.7 mmol/L (3.5-5.1); Sodium 139 mmol/L (136-145)
[2022-03-27] MEDS: Levothyroxine Sodium 75 MCG TAB PO SCH (07:24)
[2022-03-27] MEDS: Furosemide 20 MG/2 ML VIAL SLOW IVP SCH ×2 (07:24→14:54)
[2022-03-27] MEDS: Arformoterol 15 MCG/2 ML NEB NEB SCH ×2 (08:00→18:27)
[2022-03-27] MEDS: Ivabradine 5 MG TAB PO SCH ×2 (09:10→21:00)
[2022-03-27] MEDS: Calcium Carbonate 500 MG ChewTAB PO SCH ×2 (09:11→09:12)
[2022-03-27] MEDS: methylPREDNISolone Sod Succ 40 MG VIAL IVP SCH (09:11)
[2022-03-27] MEDS: Potassium Chloride 10 MEQ TAB PO SCH (09:11)
[2022-03-27] MEDS: Aspirin 81 mg Enteric Coated Tablet PO SCH (09:12)
[2022-03-27] MEDS: Midodrine HCl 5 MG TAB PO SCH ×3 (09:12→21:00)
[2022-03-27] MEDS: cefTRIAXone\\ROCEPHIN 1 GM in Sodium Chloride 0.9% 100 ML IVPB SCH (14:54)
[2022-03-27] MEDS: Azithromycin 500 MG in Sodium Chloride 0.9% 250 ML 250 ML IVPB SCH (14:56)
[2022-03-27 15:50] VITALS: BMI 12.1
[2022-03-27] MEDS: HumaLOG 300 UNITS/3 ML VIAL SC PRN (17:30)
[2022-03-27] MEDS: Ipratropium/Albuterol 3 ML NEB NEB PRN (18:21)
[2022-03-27] MEDS: Budesonide 0.5 MG/2 ML NEB NEB SCH (18:25)
[2022-03-27] MEDS: Atorvastatin Calcium 10 MG TAB PO SCH (21:00)
[2022-03-28 04:54] LABS: Anion Gap 14 mmol/L (10-20); BUN (Urea Nitrogen) 30 mg/dL (9.8-20.1); Calc. Creatinine Clearance 32 mL/min (70-130); Calcium 8.7 mg/dL (7.8-10.44); Carbon Dioxide 31 mmol/L (23-31); Chloride 98 mmol/L (98-107); Estimated GFR 80; Glucose 124 mg/dL (80-115); Sodium 139 mmol/L (136-145)
[2022-03-28] MEDS: Furosemide 20 MG/2 ML VIAL SLOW IVP SCH (07:24)
[2022-03-28] MEDS: Levothyroxine Sodium 75 MCG TAB PO SCH (07:25)
[2022-03-28] MEDS: Arformoterol 15 MCG/2 ML NEB NEB SCH ×2 (07:41→18:27)
[2022-03-28] MEDS: Budesonide 0.5 MG/2 ML NEB NEB SCH ×2 (07:41→18:28)
[2022-03-28] MEDS: Potassium Chloride 10 MEQ TAB PO SCH (09:57)
[2022-03-28] MEDS: Ivabradine 5 MG TAB PO SCH ×2 (09:57→20:25)
[2022-03-28] MEDS: Midodrine HCl 5 MG TAB PO SCH ×3 (09:59→20:25)
[2022-03-28] MEDS: Aspirin 81 mg Enteric Coated Tablet PO SCH (09:59)
[2022-03-28] MEDS: predniSONE 20 MG TAB PO SCH (09:59)
[2022-03-28] MEDS: Calcium Carbonate 500 MG ChewTAB PO SCH ×2 (09:59→10:00)
[2022-03-28] MEDS: ALPRAZolam 0.25 MG TAB PO PRN (14:28)
[2022-03-28] MEDS: Furosemide 40 MG TAB PO SCH (14:28)
[2022-03-28] MEDS: HumaLOG 300 UNITS/3 ML VIAL SC PRN (18:07)
[2022-03-28] MEDS: Atorvastatin Calcium 10 MG TAB PO SCH (20:25)
[2022-03-29 04:00] LABS: Anion Gap 14 mmol/L (10-20); BUN (Urea Nitrogen) 28 mg/dL (9.8-20.1); Calc. Creatinine Clearance 29 mL/min (70-130); Calcium 8.9 mg/dL (7.8-10.44); Carbon Dioxide 34 mmol/L (23-31); Chloride 97 mmol/L (98-107); Estimated GFR 73; Glucose 140 mg/dL (80-115); Potassium 4.4 mmol/L (3.5-5.1); Sodium 141 mmol/L (136-145)
[2022-03-29] MEDS: Levothyroxine Sodium 75 MCG TAB PO SCH (05:54)
[2022-03-29] MEDS: Arformoterol 15 MCG/2 ML NEB NEB SCH ×2 (07:51→18:08)
[2022-03-29] MEDS: Budesonide 0.5 MG/2 ML NEB NEB SCH ×2 (07:51→18:09)
[2022-03-29] MEDS: Ivabradine 5 MG TAB PO SCH ×2 (09:32→20:34)
[2022-03-29] MEDS: predniSONE 20 MG TAB PO SCH (09:32)
[2022-03-29] MEDS: Calcium Carbonate 500 MG ChewTAB PO SCH ×2 (09:32→09:36)
[2022-03-29] MEDS: Furosemide 40 MG TAB PO SCH ×2 (09:34→15:30)
[2022-03-29] MEDS: Midodrine HCl 5 MG TAB PO SCH ×3 (09:34→20:34)
[2022-03-29] MEDS: Aspirin 81 mg Enteric Coated Tablet PO SCH (09:35)
[2022-03-29] MEDS: Potassium Chloride 10 MEQ TAB PO SCH (09:35)
[2022-03-29] MEDS: ALPRAZolam 0.25 MG TAB PO PRN ×2 (09:35→20:39)
[2022-03-29] MEDS ORDERED: Metoprolol Tartrate 25 MG TAB PO SCH (14:00)
[2022-03-29] MEDS: Atorvastatin Calcium 10 MG TAB PO SCH (20:34)
[2022-03-29] MEDS: Metoprolol Tartrate 25 MG TAB PO SCH (20:34)
[2022-03-30 04:47] LABS: Anion Gap 13 mmol/L (10-20); BUN (Urea Nitrogen) 37 mg/dL (9.8-20.1); Calc. Creatinine Clearance 28 mL/min (70-130); Calcium 9.1 mg/dL (7.8-10.44); Carbon Dioxide 35 mmol/L (23-31); Chloride 93 mmol/L (98-107); Estimated GFR 65; Glucose 151 mg/dL (80-115); Potassium 4.1 mmol/L (3.5-5.1); Sodium 137 mmol/L (136-145)
[2022-03-30] MEDS: Levothyroxine Sodium 75 MCG TAB PO SCH (05:48)
[2022-03-30] MEDS: Arformoterol 15 MCG/2 ML NEB NEB SCH ×2 (07:27→18:37)
[2022-03-30] MEDS: Budesonide 0.5 MG/2 ML NEB NEB SCH ×2 (07:27→18:37)
[2022-03-30] MEDS: predniSONE 20 MG TAB PO SCH (09:10)
[2022-03-30] MEDS: Calcium Carbonate 500 MG ChewTAB PO SCH ×2 (09:10→09:11)
[2022-03-30] MEDS: Aspirin 81 mg Enteric Coated Tablet PO SCH (09:11)
[2022-03-30] MEDS: Potassium Chloride 10 MEQ TAB PO SCH (09:11)
[2022-03-30] MEDS: Furosemide 40 MG TAB PO SCH ×2 (09:11→14:09)
[2022-03-30] MEDS: Ivabradine 5 MG TAB PO SCH ×2 (09:11→20:56)
[2022-03-30] MEDS: Midodrine HCl 5 MG TAB PO SCH ×3 (09:11→20:45)
[2022-03-30] MEDS: Metoprolol Tartrate 25 MG TAB PO SCH (10:24)
[2022-03-30] MEDS: Atorvastatin Calcium 10 MG TAB PO SCH (20:45)
[2022-03-30] MEDS: ALPRAZolam 0.25 MG TAB PO PRN (20:56)
[2022-03-31 05:02] LABS: Anion Gap 18 mmol/L (10-20); BUN (Urea Nitrogen) 43 mg/dL (9.8-20.1); Calc. Creatinine Clearance 20 mL/min (70-130); Calcium 9.5 mg/dL (7.8-10.44); Carbon Dioxide 34 mmol/L (23-31); Chloride 91 mmol/L (98-107); Estimated GFR 45; Glucose 113 mg/dL (80-115); Potassium 4.1 mmol/L (3.5-5.1); Sodium 139 mmol/L (136-145)
[2022-03-31] MEDS: Levothyroxine Sodium 75 MCG TAB PO SCH (05:45)
[2022-03-31 06:57] LABS: Band 6 % (5-11); Hemoglobin 15.3 g/dL (12.0-16.0); Lymphocytes 3 % (21-51); MDiff Complete? YES; Mean Corpuscular HGB CONC 31.6 g/dL (32.0-36.0); Mean Corpuscular Hemoglobin 32.3 pg (27.0-31.0); Mean Platelet Volume 7.6 fL (7.4-10.4); Monocytes 6 % (0-10); Neutrophil 85 % (42-75); Platelet Count 327 10x3/uL (130-400); RBC Distribution Width 12.5 % (11.5-14.5); Red Blood Cell (RBC) Count 4.73 mill/uL (4.20-5.40); White Blood Cell (WBC) Count 16.8 10x3/uL (4.8-10.8)
[2022-03-31] MEDS: Arformoterol 15 MCG/2 ML NEB NEB SCH ×2 (07:40→18:52)
[2022-03-31] MEDS: Budesonide 0.5 MG/2 ML NEB NEB SCH ×2 (07:43→18:53)
[2022-03-31] MEDS ORDERED: Heparin 5,000 UNITS/ML VIAL SC SCH (09:30)
[2022-03-31] MEDS: Calcium Carbonate 500 MG ChewTAB PO SCH ×2 (09:40→09:43)
[2022-03-31] MEDS: Potassium Chloride 10 MEQ TAB PO SCH (09:41)
[2022-03-31] MEDS: Ivabradine 5 MG TAB PO SCH ×2 (09:41→20:58)
[2022-03-31] MEDS: predniSONE 20 MG TAB PO SCH (09:42)
[2022-03-31] MEDS: Midodrine HCl 5 MG TAB PO SCH ×3 (09:42→20:59)
[2022-03-31] MEDS: Aspirin 81 mg Enteric Coated Tablet PO SCH (09:42)
[2022-03-31] MEDS: Furosemide 40 MG TAB PO SCH ×2 (09:42→14:33)
[2022-03-31] MEDS: Atorvastatin Calcium 10 MG TAB PO SCH (20:59)
[2022-03-31] MEDS: ALPRAZolam 0.25 MG TAB PO PRN (20:59)
[2022-03-31] MEDS: Heparin 5,000 UNITS/ML VIAL SC SCH (21:01)
[2022-04-01 04:50] LABS: #Eosinphils 0.1 thou/uL (0.0-0.7); #Lymphocytes 0.7 thou/uL (1.20-3.40); #Neutrophils 11.1 thou/uL (1.40-6.50); %Basophils 0.2 % (0.0-1.0); %Eosinophils 0.6 % (0.0-10.0); %Lymphocytes 5.6 % (21.0-51.0); %Monocytes 7.7 % (0.0-10.0); %Neutrophils 85.9 % (42.0-75.0); Mean Corpuscular HGB CONC 32.1 g/dL (32.0-36.0); Mean Corpuscular Hemoglobin 32.7 pg (27.0-31.0); Mean Platelet Volume 7.5 fL (7.4-10.4); Platelet Count 315 10x3/uL (130-400); RBC Distribution Width 12.6 % (11.5-14.5); White Blood Cell (WBC) Count 12.9 10x3/uL (4.8-10.8)
[2022-04-01] MEDS: Levothyroxine Sodium 75 MCG TAB PO SCH (05:13)
[2022-04-01 05:15] LABS: Anion Gap 17 mmol/L (10-20); BUN (Urea Nitrogen) 53 mg/dL (9.8-20.1); Calc. Creatinine Clearance 17 mL/min (70-130); Calcium 9.7 mg/dL (7.8-10.44); Carbon Dioxide 34 mmol/L (23-31); Chloride 90 mmol/L (98-107); Estimated GFR 37; Glucose 121 mg/dL (80-115); Potassium 4.2 mmol/L (3.5-5.1); Sodium 137 mmol/L (136-145)
[2022-04-01] MEDS: Arformoterol 15 MCG/2 ML NEB NEB SCH (06:51)
[2022-04-01] MEDS: Budesonide 0.5 MG/2 ML NEB NEB SCH (06:54)
[2022-04-01] MEDS: Midodrine HCl 5 MG TAB PO SCH ×2 (08:48→14:07)
[2022-04-01] MEDS: predniSONE 20 MG TAB PO SCH (08:48)
[2022-04-01] MEDS: Ivabradine 5 MG TAB PO SCH (08:49)
[2022-04-01] MEDS: Potassium Chloride 10 MEQ TAB PO SCH (08:49)
[2022-04-01] MEDS: Heparin 5,000 UNITS/ML VIAL SC SCH (08:49)
[2022-04-01] MEDS: Furosemide 40 MG TAB PO SCH ×2 (08:49→14:07)
[2022-04-01] MEDS: Aspirin 81 mg Enteric Coated Tablet PO SCH (08:49)
[2022-04-01] MEDS: Calcium Carbonate 500 MG ChewTAB PO SCH (08:50)
[2022-04-01 11:57] VITALS: BP 112/50; TEMP 97.6
== END 2022-04-01 17:30 | disposition home or self-care (01) | DRG 193 ==
LOC: ERS 10:35 → ERHOLD 12:43 → IMCU/EMU 19:25 → OBSVTOIN 19:42 → 2NO 03-30 18:28
PROVIDERS: ADMIT Internal Medicine; ATTEND Internal Medicine
DX: J18.9 Pneumonia, unspecified organism (principal); E43 Unspecified severe protein-calorie malnutrition; I50.33 Acute on chronic diastolic (congestive) heart failure; J96.21 Acute and chronic respiratory failure with hypoxia; J96.22 Acute and chronic respiratory failure with hypercapnia; I13.0 Hypertensive heart and chronic kidney disease with heart failure and stage 1 through stage 4 chronic kidney disease, or unspecified chronic kidney disease; N39.0 Urinary tract infection, site not specified; J44.1 Chronic obstructive pulmonary disease with (acute) exacerbation; Z68.1 Body mass index [BMI] 19.9 or less, adult; J44.0 Chronic obstructive pulmonary disease with (acute) lower respiratory infection; R64 Cachexia; I27.20 Pulmonary hypertension, unspecified; Z99.81 Dependence on supplemental oxygen; N18.2 Chronic kidney disease, stage 2 (mild); E03.9 Hypothyroidism, unspecified; Z79.890 Hormone replacement therapy; Z79.52 Long term (current) use of systemic steroids; Z87.891 Personal history of nicotine dependence; Z85.51 Personal history of malignant neoplasm of bladder; Z79.82 Long term (current) use of aspirin; Z79.51 Long term (current) use of inhaled steroids
CPT/HCPCS: 36415; 36416; 36600; 71045; 71275; 80048; 80053; 81003; 81015; 82553; 82805; 83036; 83605; 83690; 83735; 83880; 84443; 84484; 85025; 87040; 87077; 87086; 87186; 87449; 87633; 87811; 87899; 93005; 93010; 94640; 96365; 96375; G0378; J0456; J0696; J1644; J1650; J1815; J1940; J2405; J2920; J2930; J3475; J3490; J7050; J7512; J7620; J7626; Q9967

== ENCOUNTER 2022-05-07 09:27 | Outpatient (CLI) | payer MEDICARE, OTHER | END 2022-05-07 09:28 | disposition home or self-care (01) | LOC: RAD 09:27 | PROVIDERS: ATTEND Internal Medicine Critical Care Medicine | DX: R06.00 Dyspnea, unspecified (principal); R91.8 Other nonspecific abnormal finding of lung field | CPT/HCPCS: 71046 ==

== ENCOUNTER 2022-07-15 09:40 | Outpatient (CLI) | payer MEDICARE, OTHER | END 2022-07-15 09:41 | disposition home or self-care (01) | LOC: BICCT 09:40 | PROVIDERS: ATTEND Internal Medicine Critical Care Medicine | DX: J18.9 Pneumonia, unspecified organism (principal); J44.9 Chronic obstructive pulmonary disease, unspecified; I27.21 Secondary pulmonary arterial hypertension; I28.1 Aneurysm of pulmonary artery | CPT/HCPCS: 71250 ==

== ENCOUNTER 2022-12-20 10:20 | Inpatient (IN) | payer MEDICARE, OTHER ==
[2022-12-20 10:49] LABS: Hematocrit 40.7 % (36.0-47.0); Hemoglobin 13.1 g/dL (12.0-16.0); Mean Corpuscular HGB CONC 32.2 g/dL (32.0-36.0); Mean Corpuscular Hemoglobin 32.5 pg (27.0-31.0); Mean Platelet Volume 10.2 fL (7.4-10.4); Platelet Count 309 10x3/uL (130-400); RBC Distribution Width 13.5 % (11.5-14.5); Red Blood Cell (RBC) Count 4.03 mill/uL (4.20-5.40); White Blood Cell (WBC) Count 37.6 10x3/uL (4.8-10.8)
[2022-12-20 10:50] LABS: Actual Bicarbonate (HCO3v) 21.4 mEq/L (22-28); Analyzer IN Cardio ER; Calcium, Ionized (venous) 1.19 mmol/L (1.16-1.32); Chloride (VBG) 94 mmol/L (98-106); Hematocrit-VBG 41 % (36.0-47.0); Hemoglobin (Hb) 13.9 g/dL (11.7-16.1); Potassium (VBG) 5.18 mmol/L (3.70-5.30); Sodium 137 mmol/L (133-146); pH (venous) 7.255 (7.32-7.43)
[2022-12-20 10:52] LABS: Delete Auto Diff?? YES; Manual Diff?? YES
[2022-12-20] MEDS ORDERED: methylPREDNISolone Sod Succ 40 MG VIAL ONE ×3 (11:01→16:35)
[2022-12-20] MEDS ORDERED: Cefepime 2 GM VIAL ONE (11:01)
[2022-12-20] MEDS ORDERED: Sodium Chloride 0.9% 100 ML ONE (11:02)
[2022-12-20 11:11] LABS: ALT (SGPT) 38 U/L (8-55); AST (SGOT) 73 U/L (5-34); Alkaline Phosphatase 99 U/L (40-110); Anion Gap 25 mmol/L (10-20); BUN (Urea Nitrogen) 81 mg/dL (9.8-20.1); Bilirubin, Total 0.6 mg/dL (0.2-1.2); Calc. Creatinine Clearance 0 mL/min (70-130); Calcium 10.4 mg/dL (7.8-10.44); Carbon Dioxide 22 mmol/L (23-31); Chloride 94 mmol/L (98-107); Estimated GFR 18; Globulin 3.4 g/dL (2.4-3.5); Glucose 171 mg/dL (80-115); Potassium 5.2 mmol/L (3.5-5.1); Protein, Total 7.4 g/dL (5.8-8.1); Sodium 136 mmol/L (136-145)
[2022-12-20 11:24] LABS: Band 2 % (5-11); Lymphocytes 4 % (21-51); Monocytes 4 % (0-10); Neutrophil 90 % (42-75)
[2022-12-20 11:28] LABS: Platelet Adequacy Comment Platelets Normal
[2022-12-20 11:29] LABS: Macrocytosis SLIGHT = 6-15 cells (100X) (0-5/hpf)
[2022-12-20] MEDS ORDERED: Vancomycin HCl 750 MG in Sodium Chloride 0.9% 250 ML 250 ML IVPB SCH (11:30)
[2022-12-20] MEDS ORDERED: Ipratropium/Albuterol 3 ML NEB ONE (11:40)
[2022-12-20] MEDS ORDERED: Albuterol 2.5 MG/0.5 ML NEB ONE (11:41)
[2022-12-20] MEDS ORDERED: Amiodarone 150 MG/3 ML VIAL ONE (13:19)
[2022-12-20] MEDS ORDERED: Magnesium 2 GM/50 ML BAG (IN WATER) ONE (13:19)
[2022-12-20] MEDS ORDERED: dilTIAZem 25 MG/5 ML VIAL ONE (13:27)
[2022-12-20 13:43] LABS: Lactic Acid 1.6 mmol/L (0.5-2.2)
[2022-12-20] MEDS ORDERED: dilTIAZem 125 MG/25 ML SDV ONE ×2 (13:45→13:58)
[2022-12-20] MEDS ORDERED: Acetaminophen 325 MG TAB PO PRN (13:49)
[2022-12-20] MEDS ORDERED: Ondansetron PF 4 MG/2 ML Vial IVP PRN (13:49)
[2022-12-20] MEDS ORDERED: [UNRECOGNIZED DRUG - REMARK] IVPB PRN (14:08)
[2022-12-20] MEDS ORDERED: Heparin 10,000 UNITS/ 10 ML VIAL SLOW IVP SCH (14:15)
[2022-12-20] MEDS ORDERED: Heparin 25,000 units/D5W 500 ML IVPB SCH (14:15)
[2022-12-20] MEDS ORDERED: dilTIAZem 125 MG in Sodium Chloride 0.9% 100 ML IVPB SCH (14:15)
[2022-12-20 14:25] LABS: Troponin I 0.109 ng/mL (< 0.028)
[2022-12-20] MEDS ORDERED: Heparin 25,000 units/D5W 500 ML ONE (15:08)
[2022-12-20] MEDS ORDERED: Benzonatate 100 MG CAP PO PRN (15:24)
[2022-12-20] MEDS ORDERED: Ipratropium/Albuterol 3 ML NEB NEB PRN (15:24)
[2022-12-20] MEDS ORDERED: Vancomycin Dose by Levels Sliding Scale (Wt <71) FS SCH (15:30)
[2022-12-20 15:36] LABS: Hematocrit 35.5 % (36.0-47.0); Hemoglobin 11.2 g/dL (12.0-16.0); Platelet Count 195 10x3/uL (130-400)
[2022-12-20] MEDS ORDERED: Albumin 25% 25 GM/100 ML BOT IVPB SCH (16:00)
[2022-12-20] MEDS ORDERED: Sodium Chloride 0.9% 500 ML IV SCH (16:00)
[2022-12-20] MEDS ORDERED: Azithromycin 500 MG VIAL ONE (16:35)
[2022-12-20] MEDS: Azithromycin 500 MG in Sodium Chloride 0.9% 250 ML 250 ML IVPB SCH (16:51)
[2022-12-20] MEDS: methylPREDNISolone Sod Succ 40 MG VIAL IVP SCH ×2 (16:51→21:38)
[2022-12-20 16:58] LABS: Chloride 108 mmol/L (98-107); Potassium 4.9 mmol/L (3.5-5.1); Sodium 138 mmol/L (136-145)
[2022-12-20 16:59] LABS: Glucose 132 mg/dL (80-115)
[2022-12-20 17:01] LABS: Anion Gap 22 mmol/L (10-20); Carbon Dioxide 13 mmol/L (23-31)
[2022-12-20 17:03] LABS: Calc. Creatinine Clearance 0 mL/min (70-130); Estimated GFR 27
[2022-12-20 17:04] LABS: BUN (Urea Nitrogen) 68 mg/dL (9.8-20.1); Calcium 8.4 mg/dL (7.8-10.44)
[2022-12-20 17:16] LABS: Troponin I 0.096 ng/mL (< 0.028)
[2022-12-20 17:30] LABS: Bacteria/HPF None Seen HPF (None Seen); Bilirubin Negative (Negative); Blood, Urine Trace (Negative); CAUTI Indications for Culture Dysuria,urgency,freq; Clarity Turbid (Clear); Glucose, Urine (Dipstick) Normal (Negative); Ketone, Urine 10 mg/dL (Negative); Leukocyte Negative Leu/uL (Negative); Nitrite Negative (Negative); Protein, Urine (Dipstick) 50 mg/dL (Neg-Trace); RBC/HPF 0-3 HPF (0-3); Specific Gravity, Urine 1.022 (1.002-1.036); Squamous Epithelial 0-3 HPF (0-3); Urobilinogen Normal mg/dL (Less than 2)
[2022-12-20] MEDS ORDERED: Sodium Bicarbonate 150 MEQ in Dextrose 5% in Water 1,000 ML IV SCH (17:30)
[2022-12-20 17:38] LABS: Urine Culture Reflex No No
[2022-12-20 20:54] LABS: ALT (SGPT) 33 U/L (8-55); AST (SGOT) 68 U/L (5-34); Albumin 3.7 g/dL (3.4-4.8); Alkaline Phosphatase 62 U/L (40-110); Anion Gap 20 mmol/L (10-20); BUN (Urea Nitrogen) 67 mg/dL (9.8-20.1); Bilirubin, Total 0.5 mg/dL (0.2-1.2); Calc. Creatinine Clearance 16 mL/min (70-130); Calcium 8.2 mg/dL (7.8-10.44); Carbon Dioxide 15 mmol/L (23-31); Chloride 109 mmol/L (98-107); Estimated GFR 29; Globulin 2.1 g/dL (2.4-3.5); Glucose 197 mg/dL (80-115); Potassium 4.7 mmol/L (3.5-5.1); Protein, Total 5.8 g/dL (5.8-8.1); Sodium 139 mmol/L (136-145)
[2022-12-20] MEDS: Albumin 25% 25 GM/100 ML BOT IVPB SCH (21:37)
[2022-12-20] MEDS: Atorvastatin Calcium 10 MG TAB PO SCH (21:38)
[2022-12-20] MEDS: Midodrine HCl 5 MG TAB PO SCH (21:38)
[2022-12-20] MEDS: Ivabradine 5 MG TAB PO SCH (21:38)
[2022-12-20 22:43] LABS: SARS-CoV-2 NAA Rapid Test Not Detected (NotDetected)
[2022-12-20] MEDS: Mometasone 100 MCG/Formoterol 5 MCG 120 PUFF INHALER INH SCH (22:58)
[2022-12-21] MEDS: Albuterol 200 PUFF (6.7GM INHALER) INH SCH ×5 (02:15→22:33)
[2022-12-21] MEDS: Albumin 25% 25 GM/100 ML BOT IVPB SCH ×3 (04:13→16:51)
[2022-12-21 05:22] LABS: Legionella Urinary Ag Negative (Negative); Strep pneumo Urine Ag NEGATIVE (NEGATIVE)
[2022-12-21 05:29] LABS: #Monocytes 0.7 thou/uL (0.11-0.59); #Neutrophils 19.8 thou/uL (1.40-6.50); %Basophils 0.1 % (0.0-1.0); %Eosinophils 0.1 % (0.0-10.0); %Monocytes 3.4 % (0.0-10.0); %Neutrophils 94.6 % (42.0-75.0); Hematocrit 30.7 % (36.0-47.0); Hemoglobin 9.4 g/dL (12.0-16.0); Mean Corpuscular HGB CONC 30.6 g/dL (32.0-36.0); Mean Corpuscular Hemoglobin 32.6 pg (27.0-31.0); Mean Platelet Volume 10.2 fL (7.4-10.4); Platelet Count 173 10x3/uL (130-400); RBC Distribution Width 13.7 % (11.5-14.5); Red Blood Cell (RBC) Count 2.88 mill/uL (4.20-5.40); White Blood Cell (WBC) Count 20.9 10x3/uL (4.8-10.8)
[2022-12-21 06:12] LABS: INR-International Normal Ratio 1.1; Prothrombin Time 14.9 sec (12.0-14.7)
[2022-12-21] MEDS: Levothyroxine Sodium 75 MCG TAB PO SCH (06:14)
[2022-12-21 06:15] LABS: ALT (SGPT) 36 U/L (8-55); AST (SGOT) 77 U/L (5-34); Albumin 4.4 g/dL (3.4-4.8); Alkaline Phosphatase 75 U/L (40-110); Anion Gap 23 mmol/L (10-20); BUN (Urea Nitrogen) 61 mg/dL (9.8-20.1); Bilirubin, Total 0.5 mg/dL (0.2-1.2); Calc. Creatinine Clearance 18 mL/min (70-130); Calcium 8.8 mg/dL (7.8-10.44); Carbon Dioxide 14 mmol/L (23-31); Chloride 110 mmol/L (98-107); Estimated GFR 34; Glucose 146 mg/dL (80-115); Magnesium 3.2 mg/dL (1.6-2.6); Potassium 4.4 mmol/L (3.5-5.1); Protein, Total 6.4 g/dL (5.8-8.1); Sodium 143 mmol/L (136-145)
[2022-12-21 06:58] LABS: Mean Corpuscular Volume 106.6 fl (78.0-98.0)
[2022-12-21] MEDS: Mometasone 100 MCG/Formoterol 5 MCG 120 PUFF INHALER INH SCH ×2 (07:02→18:12)
[2022-12-21] MEDS ORDERED: FLU VACC QS2023(65UP)/MF59C/PF 60 MCG/0.5 ML SYRINGE IM ONE (09:00)
[2022-12-21] MEDS: Ivabradine 5 MG TAB PO SCH (09:47)
[2022-12-21] MEDS: methylPREDNISolone Sod Succ 40 MG VIAL IVP SCH ×3 (09:47→21:12)
[2022-12-21] MEDS: Aspirin 81 mg Enteric Coated Tablet PO SCH (09:47)
[2022-12-21] MEDS: Midodrine HCl 5 MG TAB PO SCH ×3 (09:48→21:10)
[2022-12-21 11:14] LABS: Vancomycin, Random 8.5 ug/mL (See Comment)
[2022-12-21] MEDS ORDERED: Midodrine HCl 5 MG TAB PO SCH (11:15)
[2022-12-21] MEDS ORDERED: Vancomycin HCl 750 MG in Sodium Chloride 0.9% 250 ML 250 ML IVPB SCH (11:30)
[2022-12-21] MEDS: Cefepime 1 GM in Sodium Chloride 0.9% 100 ML IVPB SCH (12:25)
[2022-12-21] MEDS: PARoxetine 20 MG TAB PO SCH (12:25)
[2022-12-21] MEDS ORDERED: Furosemide 20 MG/2 ML VIAL SLOW IVP SCH (15:00)
[2022-12-21] MEDS: Azithromycin 500 MG in Sodium Chloride 0.9% 250 ML 250 ML IVPB SCH (16:50)
[2022-12-21] MEDS ORDERED: ALPRAZolam 0.25 MG TAB PO PRN (20:43)
[2022-12-21] MEDS: Atorvastatin Calcium 10 MG TAB PO SCH (21:10)
[2022-12-22] MEDS ORDERED: Ipratropium/Albuterol 3 ML NEB NEB PRN (00:48)
[2022-12-22 04:20] LABS: INR-International Normal Ratio 1.2; Prothrombin Time 15.2 sec (12.0-14.7)
[2022-12-22] MEDS: Levothyroxine Sodium 75 MCG TAB PO SCH (05:42)
[2022-12-22] MEDS: Ipratropium/Albuterol 3 ML NEB NEB SCH ×4 (06:39→19:29)
[2022-12-22] MEDS: Albuterol 200 PUFF (6.7GM INHALER) INH SCH (06:40)
[2022-12-22 07:35] LABS: #Monocytes 0.8 thou/uL (0.11-0.59); #Neutrophils 20.8 thou/uL (1.40-6.50); %Basophils 0.2 % (0.0-1.0); %Lymphocytes 0.7 % (21.0-51.0); %Monocytes 3.6 % (0.0-10.0); %Neutrophils 93.6 % (42.0-75.0); Hematocrit 29.4 % (36.0-47.0); Hemoglobin 9.3 g/dL (12.0-16.0); Mean Corpuscular HGB CONC 31.6 g/dL (32.0-36.0); Mean Corpuscular Volume 104.3 fl (78.0-98.0); Platelet Count 165 10x3/uL (130-400); RBC Distribution Width 14.1 % (11.5-14.5); Red Blood Cell (RBC) Count 2.82 mill/uL (4.20-5.40); White Blood Cell (WBC) Count 22.3 10x3/uL (4.8-10.8)
[2022-12-22] MEDS ORDERED: Vasopressin 20 UNITS, Admixture Fee 1 EACH in Sodium Chloride 0.9% 50 ML IV SCH (08:00)
[2022-12-22 08:01] LABS: Anion Gap 22 mmol/L (10-20); BUN (Urea Nitrogen) 54 mg/dL (9.8-20.1); Calc. Creatinine Clearance 23 mL/min (70-130); Calcium 9.2 mg/dL (7.8-10.44); Carbon Dioxide 18 mmol/L (23-31); Chloride 112 mmol/L (98-107); Estimated GFR 45; Glucose 102 mg/dL (80-115); Potassium 4.1 mmol/L (3.5-5.1); Sodium 148 mmol/L (136-145)
[2022-12-22] MEDS: Mometasone 100 MCG/Formoterol 5 MCG 120 PUFF INHALER INH SCH ×2 (08:05→19:34)
[2022-12-22] MEDS ORDERED: NOREPINEPHRINE 8 MG/250 ML-D5W 250 ML IVPB SCH (08:15)
[2022-12-22] MEDS: PARoxetine 20 MG TAB PO SCH (08:29)
[2022-12-22] MEDS: methylPREDNISolone Sod Succ 40 MG VIAL IVP SCH ×3 (08:29→21:40)
[2022-12-22] MEDS: Midodrine HCl 5 MG TAB PO SCH ×3 (08:29→21:15)
[2022-12-22] MEDS: Aspirin 81 mg Enteric Coated Tablet PO SCH (08:29)
[2022-12-22] MEDS ORDERED: Digoxin 0.5 MG/2 ML AMP SLOW IVP SCH (09:00)
[2022-12-22 09:43] VITALS: BMI 14.1
[2022-12-22] MEDS: Cefepime 1 GM in Sodium Chloride 0.9% 100 ML IVPB SCH (10:37)
[2022-12-22 11:17] LABS: Vancomycin, Random 12.9 ug/mL (See Comment)
[2022-12-22 11:20] LABS: Iron 15 ug/dL (50-170); Iron Binding Capacity, Total 133 mcg/dL (265-497)
[2022-12-22] MEDS ORDERED: Vancomycin HCl 500 MG in Sodium Chloride 0.9% 100 ML IVPB SCH (11:30)
[2022-12-22] MEDS: Diclofenac 1% 50 GM TOPICAL GEL TP SCH ×3 (12:18→21:16)
[2022-12-22] MEDS: Azithromycin 500 MG in Sodium Chloride 0.9% 250 ML 250 ML IVPB SCH (12:18)
[2022-12-22] MEDS: Atorvastatin Calcium 10 MG TAB PO SCH (21:14)
[2022-12-23] MEDS: Levothyroxine Sodium 75 MCG TAB PO SCH (05:30)
[2022-12-23] MEDS: Ipratropium/Albuterol 3 ML NEB NEB SCH ×4 (06:08→18:30)
[2022-12-23] MEDS: Mometasone 100 MCG/Formoterol 5 MCG 120 PUFF INHALER INH SCH ×2 (06:14→18:40)
[2022-12-23 06:41] LABS: Hematocrit 33.5 % (36.0-47.0); Hemoglobin 10.2 g/dL (12.0-16.0); Mean Corpuscular HGB CONC 30.4 g/dL (32.0-36.0); Mean Corpuscular Hemoglobin 32.2 pg (27.0-31.0); Mean Corpuscular Volume 105.7 fl (78.0-98.0); Platelet Count 149 10x3/uL (130-400); RBC Distribution Width 14.5 % (11.5-14.5); Red Blood Cell (RBC) Count 3.17 mill/uL (4.20-5.40); White Blood Cell (WBC) Count 20.9 10x3/uL (4.8-10.8)
[2022-12-23 07:02] LABS: INR-International Normal Ratio 1.1; Prothrombin Time 14.8 sec (12.0-14.7)
[2022-12-23 07:17] LABS: Delete Auto Diff?? YES; Manual Diff?? YES
[2022-12-23 07:56] LABS: Band 20 % (5-11); CellaVision Operator ID LAB.GE; Macrocytosis SLIGHT = 6-15 cells HPF (0-5); Metamyelocyte 1 % (0-0); Monocytes 1 % (0-10); Myelocyte 1 % (0-0); Neutrophil 76 % (42-75); Nucleated RBC (Manual Ct) 3 % (0); Platelet Adequacy Comment Platelets Normal; Polychromasia SLIGHT = 2-3 cells HPF (0-2); RBC Morphology Within Normal Limits; Reactive Lymphocytes 1 % (0-10); Total Cell Count 99
[2022-12-23] MEDS: PARoxetine 20 MG TAB PO SCH (09:27)
[2022-12-23] MEDS: Aspirin 81 mg Enteric Coated Tablet PO SCH (09:27)
[2022-12-23] MEDS: Midodrine HCl 5 MG TAB PO SCH ×3 (09:27→20:37)
[2022-12-23] MEDS: methylPREDNISolone Sod Succ 40 MG VIAL IVP SCH ×3 (09:29→20:37)
[2022-12-23] MEDS: Diclofenac 1% 50 GM TOPICAL GEL TP SCH ×4 (09:51→20:38)
[2022-12-23 11:13] LABS: Vancomycin, Random 16.3 ug/mL (See Comment)
[2022-12-23 11:14] LABS: Anion Gap 19 mmol/L (10-20); BUN (Urea Nitrogen) 60 mg/dL (9.8-20.1); Calc. Creatinine Clearance 21 mL/min (70-130); Calcium 9.3 mg/dL (7.8-10.44); Carbon Dioxide 20 mmol/L (23-31); Chloride 109 mmol/L (98-107); Estimated GFR 40; Glucose 222 mg/dL (80-115); Potassium 4.5 mmol/L (3.5-5.1); Sodium 143 mmol/L (136-145)
[2022-12-23] MEDS ORDERED: Vancomycin HCl 250 MG, Admixture Fee 1 EACH in Sodium Chloride 0.9% 100 ML IV SCH (11:30)
[2022-12-23] MEDS: Cefepime 1 GM in Sodium Chloride 0.9% 100 ML IVPB SCH (11:41)
[2022-12-23] MEDS: Azithromycin 500 MG in Sodium Chloride 0.9% 250 ML 250 ML IVPB SCH (14:14)
[2022-12-23] MEDS: Atorvastatin Calcium 10 MG TAB PO SCH (20:37)
[2022-12-23] MEDS ORDERED: Digoxin 0.5 MG/2 ML AMP SLOW IVP SCH (21:15)
[2022-12-24] MEDS ORDERED: Digoxin 0.5 MG/2 ML AMP SLOW IVP SCH (03:30)
[2022-12-24] MEDS ORDERED: dilTIAZem 125 MG in Sodium Chloride 0.9% 100 ML IVPB SCH (04:15)
[2022-12-24] MEDS: Levothyroxine Sodium 75 MCG TAB PO SCH (06:01)
[2022-12-24 06:46] LABS: INR-International Normal Ratio 1.2; Prothrombin Time 15.5 sec (12.0-14.7)
[2022-12-24] MEDS: Ipratropium/Albuterol 3 ML NEB NEB SCH ×4 (07:30→18:33)
[2022-12-24] MEDS: Mometasone 100 MCG/Formoterol 5 MCG 120 PUFF INHALER INH SCH ×2 (07:33→18:34)
[2022-12-24] MEDS: PARoxetine 20 MG TAB PO SCH (09:58)
[2022-12-24] MEDS: methylPREDNISolone Sod Succ 40 MG VIAL IVP SCH ×3 (09:59→21:19)
[2022-12-24] MEDS: Diclofenac 1% 50 GM TOPICAL GEL TP SCH ×4 (09:59→21:21)
[2022-12-24] MEDS: Aspirin 81 mg Enteric Coated Tablet PO SCH (09:59)
[2022-12-24] MEDS: Midodrine HCl 5 MG TAB PO SCH ×3 (10:01→21:19)
[2022-12-24] MEDS: Cefepime 1 GM in Sodium Chloride 0.9% 100 ML IVPB SCH (10:23)
[2022-12-24 11:32] LABS: Anion Gap 16 mmol/L (10-20); BUN (Urea Nitrogen) 59 mg/dL (9.8-20.1); Calc. Creatinine Clearance 24 mL/min (70-130); Carbon Dioxide 23 mmol/L (23-31); Chloride 108 mmol/L (98-107); Estimated GFR 46; Glucose 213 mg/dL (80-115); Potassium 4.5 mmol/L (3.5-5.1); Sodium 142 mmol/L (136-145)
[2022-12-24] MEDS ORDERED: Vancomycin HCl 750 MG in Sodium Chloride 0.9% 250 ML 250 ML IVPB SCH (11:45)
[2022-12-24] MEDS: Azithromycin 500 MG in Sodium Chloride 0.9% 250 ML 250 ML IVPB SCH (14:27)
[2022-12-24] MEDS: Dronedarone HCl 400 MG TAB PO SCH (18:16)
[2022-12-24] MEDS: Atorvastatin Calcium 10 MG TAB PO SCH (21:19)
[2022-12-25] MEDS: Levothyroxine Sodium 75 MCG TAB PO SCH (06:50)
[2022-12-25 07:10] LABS: INR-International Normal Ratio 1.2; Prothrombin Time 15.5 sec (12.0-14.7)
[2022-12-25 07:22] LABS: Digoxin 1.76 ng/mL (0.8-2.0)
[2022-12-25] MEDS: Ipratropium/Albuterol 3 ML NEB NEB SCH ×4 (07:57→18:35)
[2022-12-25] MEDS: Mometasone 100 MCG/Formoterol 5 MCG 120 PUFF INHALER INH SCH ×2 (07:59→18:36)
[2022-12-25] MEDS ORDERED: Lorazepam 2 MG/ML VIAL SLOW IVP PRN ×2 (09:09→09:21)
[2022-12-25] MEDS: Aspirin 81 mg Enteric Coated Tablet PO SCH (09:20)
[2022-12-25] MEDS: Dronedarone HCl 400 MG TAB PO SCH ×2 (09:20→17:09)
[2022-12-25] MEDS: PARoxetine 20 MG TAB PO SCH (09:21)
[2022-12-25] MEDS: Midodrine HCl 5 MG TAB PO SCH ×3 (09:21→21:07)
[2022-12-25] MEDS: Diclofenac 1% 50 GM TOPICAL GEL TP SCH ×4 (09:21→21:08)
[2022-12-25] MEDS: methylPREDNISolone Sod Succ 40 MG VIAL IVP SCH ×3 (09:21→21:07)
[2022-12-25] MEDS: Morphine 2 MG/ML VIAL SLOW IVP PRN (09:35)
[2022-12-25 11:18] LABS: Vancomycin, Random 15.3 ug/mL (See Comment)
[2022-12-25] MEDS ORDERED: Vancomycin HCl 500 MG in Sodium Chloride 0.9% 100 ML IVPB SCH (11:30)
[2022-12-25] MEDS: Cefepime 1 GM in Sodium Chloride 0.9% 100 ML IVPB SCH (12:34)
[2022-12-25] MEDS ORDERED: Clopidogrel Bisulfate 300 MG TAB PO SCH (13:15)
[2022-12-25] MEDS: Atorvastatin Calcium 10 MG TAB PO SCH (21:07)
[2022-12-26 05:34] LABS: INR-International Normal Ratio 1.2; Prothrombin Time 15.8 sec (12.0-14.7)
[2022-12-26] MEDS: Levothyroxine Sodium 75 MCG TAB PO SCH (05:55)
[2022-12-26] MEDS: Ipratropium/Albuterol 3 ML NEB NEB SCH ×3 (06:31→14:13)
[2022-12-26] MEDS: Mometasone 100 MCG/Formoterol 5 MCG 120 PUFF INHALER INH SCH (06:31)
[2022-12-26] MEDS: Morphine 2 MG/ML VIAL SLOW IVP PRN (07:58)
[2022-12-26] MEDS ORDERED: Clopidogrel Bisulfate 75 MG TAB PO SCH (09:00)
[2022-12-26] MEDS: Aspirin 81 mg Enteric Coated Tablet PO SCH (10:27)
[2022-12-26] MEDS: Dronedarone HCl 400 MG TAB PO SCH (10:27)
[2022-12-26] MEDS: Midodrine HCl 5 MG TAB PO SCH ×2 (10:27→14:18)
[2022-12-26] MEDS: methylPREDNISolone Sod Succ 40 MG VIAL IVP SCH ×2 (10:27→14:18)
[2022-12-26] MEDS: Diclofenac 1% 50 GM TOPICAL GEL TP SCH ×2 (10:28→13:25)
[2022-12-26 11:32] LABS: Vancomycin, Random 14.9 ug/mL (See Comment)
[2022-12-26] MEDS: PARoxetine 20 MG TAB PO SCH (11:45)
[2022-12-26] MEDS ORDERED: Vancomycin HCl 500 MG in Sodium Chloride 0.9% 100 ML IV SCH (11:45)
[2022-12-26] MEDS: Cefepime 1 GM in Sodium Chloride 0.9% 100 ML IVPB SCH (11:45)
[2022-12-26 12:14] VITALS: TEMP 97.8
== END 2022-12-26 16:00 | disposition hospice, home (50) | DRG 871 ==
LOC: SUATTDRO 10:20 → ERS 10:20 → ERHOLD 13:33 → IMCU/EMU 19:56
PROVIDERS: ADMIT Internal Medicine; ATTEND Internal Medicine
PROC: 3E03329 Introduction of Other Anti-infective into Peripheral Vein, Percutaneous Approach (ICD-10-PCS; principal; 2022-12-20)
PROC: 30233J1 Transfusion of Nonautologous Serum Albumin into Peripheral Vein, Percutaneous Approach (ICD-10-PCS; 2022-12-20)
PROC: 5A0955A Assistance with Respiratory Ventilation, Greater than 96 Consecutive Hours, High Flow/Velocity Cannula (ICD-10-PCS; 2022-12-22)
PROC: 3E033XZ Introduction of Vasopressor into Peripheral Vein, Percutaneous Approach (ICD-10-PCS; 2022-12-22)
PROC: 5A09357 Assistance with Respiratory Ventilation, Less than 24 Consecutive Hours, Continuous Positive Airway Pressure (ICD-10-PCS; 2022-12-23)
DX: A41.9 Sepsis, unspecified organism (principal); E43 Unspecified severe protein-calorie malnutrition; Z51.5 Encounter for palliative care; J18.9 Pneumonia, unspecified organism; J96.21 Acute and chronic respiratory failure with hypoxia; N17.0 Acute kidney failure with tubular necrosis; I50.32 Chronic diastolic (congestive) heart failure; J44.0 Chronic obstructive pulmonary disease with (acute) lower respiratory infection; J44.1 Chronic obstructive pulmonary disease with (acute) exacerbation; E87.20 Acidosis, unspecified; Z68.1 Body mass index [BMI] 19.9 or less, adult; R64 Cachexia; I13.0 Hypertensive heart and chronic kidney disease with heart failure and stage 1 through stage 4 chronic kidney disease, or unspecified chronic kidney disease; E03.9 Hypothyroidism, unspecified; F32.A Depression, unspecified; F39 Unspecified mood [affective] disorder; I25.10 Atherosclerotic heart disease of native coronary artery without angina pectoris; N18.9 Chronic kidney disease, unspecified; E87.5 Hyperkalemia; E87.8 Other disorders of electrolyte and fluid balance, not elsewhere classified; I27.20 Pulmonary hypertension, unspecified; I48.0 Paroxysmal atrial fibrillation; R65.20 Severe sepsis without septic shock; Z20.822 Contact with and (suspected) exposure to COVID-19; Z99.81 Dependence on supplemental oxygen; Z85.51 Personal history of malignant neoplasm of bladder; Z90.710 Acquired absence of both cervix and uterus; Z98.890 Other specified postprocedural states; Z87.891 Personal history of nicotine dependence; Z79.51 Long term (current) use of inhaled steroids; Z79.82 Long term (current) use of aspirin; Z79.899 Other long term (current) drug therapy
CPT/HCPCS: 36415; 71045; 71250; 74177; 78451; 80048; 80053; 80162; 80202; 81001; 82310; 82728; 82805; 83540; 83550; 83605; 83735; 83880; 84145; 84443; 84484; 85025; 85379; 85610; 85730; 86140; 87040; 87449; 87899; 93005; 93306; 93970; 94640; 94660; 94664; 96365; 96367; 96375; 96376; A9540; J0282; J0456; J0692; J1160; J1644; J1940; J2060; J2272; J2920; J3370; J3475; J3490; J7030; J7050; J7070; J7611; J7620; P9047